=== PATIENT | male | born 1940 | race Caucasian/White ===

== ENCOUNTER 2017-01-05 16:44 | Inpatient (IN) | payer MEDICARE ==
[~2017-01-05] VITALS: Ht 170.2 cm; Wt 87.6 kg
[2017-01-05] MEDS ORDERED: ACETAMINOPHEN 325 MG TABLET PO PRN (17:00)
[2017-01-05] MEDS ORDERED: MORPHINE SULFATE 4 MG/ML, 1ML IVPush PRN (17:00)
[2017-01-05] MEDS ORDERED: POLYETHYLENE GLYCOL 17 GM PACKET PO PRN (17:00)
[2017-01-05] MEDS ORDERED: ONDANSETRON 2MG/ML, 2ML IVP PRN (17:00)
[2017-01-05] MEDS ORDERED: GUAIFENESIN/DM 200-20MG, 10ML UDC PO PRN (17:00)
[2017-01-05] MEDS ORDERED: DOCUSATE 100 MG CAPSULE PO PRN (17:00)
[2017-01-05] MEDS ORDERED: PLEASE ENTER HEIGHT AND WEIGHT MC SCH (17:30)
[2017-01-05] MEDS ORDERED: HEPARIN 5,000 UNITS/ML, 1ML IV ONE (17:30)
[2017-01-05] MEDS ORDERED: PLEASE ENTER ALLERGIES MC SCH ×2 (17:30)
[2017-01-05 17:31] VITALS: BP 118/72
[2017-01-05] MEDS ORDERED: ASPI-650 PO (17:36)
[2017-01-05] MEDS ORDERED: ALLO300T PO (17:36)
[2017-01-05] MEDS ORDERED: LISI40TA PO (17:39)
[2017-01-05] MEDS ORDERED: ROSU20TA PO (17:39)
[2017-01-05] MEDS ORDERED: ATEN50TA41 PO (17:39)
[2017-01-05] MEDS ORDERED: HYDR25TA6 PO (17:39)
[2017-01-05] MEDS: HEPARIN 25,000 UNITS/500ML PMX 500 ML IV PRN (20:09)
[2017-01-05] MEDS: SODIUM CHLORIDE FLUSH 10ML SYR IVF SCH (20:13)
[2017-01-05 21:10] VITALS: BP 121/70
[2017-01-06 02:39] LABS: HEMOGLOBIN 14.5 g/dL (13.7-18.0)
[2017-01-06 02:41] VITALS: BP 111/71
[2017-01-06 02:51] LABS: BLOOD UREA NITROGEN 13 mg/dL (7-18)
[2017-01-06 02:54] LABS: ASPARTATE AMINO TRANSFERASE 21 U/L (15-37)
[2017-01-06] MEDS: HEPARIN 5,000 UNITS/ML, 1ML IV PRN ×2 (04:50→12:00)
[2017-01-06 07:38] VITALS: BP 116/71
[2017-01-06] MEDS: SODIUM CHLORIDE FLUSH 10ML SYR IVF SCH ×2 (08:15→21:00)
[2017-01-06] MEDS: SENNA/DOCUSATE TABLET PO SCH (08:15)
[2017-01-06] MEDS ORDERED: ASPIRIN 325 MG TABLET EC PO SCH (09:00)
[2017-01-06] MEDS ORDERED: ATENOLOL 50 MG TABLET PO SCH (09:00)
[2017-01-06] MEDS ORDERED: HYDROCHLOROTHIAZIDE 25 MG TABLET PO SCH (09:00)
[2017-01-06] MEDS ORDERED: LISINOPRIL 20 MG TABLET PO SCH (09:00)
[2017-01-06 09:45] VITALS: BP 129/73
[2017-01-06] MEDS: ALLOPURINOL 300 MG TABLET PO SCH (09:46)
[2017-01-06] MEDS ORDERED: CHLORHEXIDINE MOUTHWASH 15 ML UDC MM PRN (11:00)
[2017-01-06 11:35] LABS: ASPARTATE AMINO TRANSFERASE 20 U/L (15-37); BLOOD UREA NITROGEN 12 mg/dL (7-18)
[2017-01-06 11:43] LABS: HEMOGLOBIN 14.8 g/dL (13.7-18.0)
[2017-01-06 14:33] VITALS: BP 90/52
[2017-01-06 21:15] VITALS: BP 116/67
[2017-01-06] MEDS: HEPARIN 25,000 UNITS/500ML PMX 500 ML IV PRN (21:40)
[2017-01-06] MEDS: ATORVASTATIN 40 MG TABLET PO SCH (21:43)
[2017-01-06] MEDS: MUPIROCIN OINT 2%, 22GM TP SCH (21:45)
[2017-01-07 01:11] VITALS: BP 104/62
[2017-01-07] MEDS: HEPARIN 5,000 UNITS/ML, 1ML IV PRN (01:20)
[2017-01-07] MEDS ORDERED: ALBUMIN HUMAN 5% 500 ML IV ONE ×2 (02:00→09:00)
[2017-01-07 06:52] VITALS: BP_SYST 102; BP_SYST 104; BP_DIAS 62; BP_DIAS 65
[2017-01-07] MEDS ORDERED: DEXMEDETOMIDINE 200 MCG in SODIUM CHLORIDE 0.9% 48 ML IV SCH (07:30)
[2017-01-07] MEDS ORDERED: REGULAR INSULIN 62.5 UNITS in SODIUM CHLORIDE 0.9% 249.375 ML IV PRN ×2 (07:30→15:37)
[2017-01-07] MEDS ORDERED: EPINEPHRINE 2 MG in SODIUM CHLORIDE 0.9% 248 ML IV SCH (07:30)
[2017-01-07] MEDS ORDERED: VANCOMYCIN 1,300 MG in SODIUM CHLORIDE 0.9% 250 ML IVPB PRN (07:30)
[2017-01-07] MEDS ORDERED: POTASSIUM CHLORIDE 80 MEQ, SODIUM BICARBONATE 8.4% 10 MEQ, MAGNESIUM SULFATE 0.5 GM, LI... IV PRN ×2 (07:30)
[2017-01-07] MEDS ORDERED: VANCOMYCIN 1,200 MG in SODIUM CHLORIDE 0.9% 250 ML IV PRN (07:30)
[2017-01-07] MEDS ORDERED: MANNITOL PMX 20% 500 ML IVPB PRN ×2 (07:30)
[2017-01-07] MEDS ORDERED: PHENYLEPHRINE 10 MG in SODIUM CHLORIDE 0.9% 249 ML IV PRN ×2 (07:30→15:37)
[2017-01-07] MEDS ORDERED: CEFUROXIME 1.5 GM in SODIUM CHLORIDE 0.9% 50 ML IVPB PRN (07:30)
[2017-01-07] MEDS: MUPIROCIN OINT 2%, 22GM TP SCH ×2 (08:31→21:08)
[2017-01-07] MEDS: SODIUM CHLORIDE FLUSH 10ML SYR IVF SCH ×3 (09:00→21:07)
[2017-01-07] MEDS ORDERED: MIDAZOLAM 10MG/2 ML ONE (09:06)
[2017-01-07] MEDS ORDERED: FENTANYL PF 1000 MCG/20ML ONE (09:06)
[2017-01-07] MEDS ORDERED: ROCURONIUM 10 MG/ML ONE (11:25)
[2017-01-07] MEDS ORDERED: PROPOFOL 10 MG/ML, 20ML ONE (11:25)
[2017-01-07] MEDS ORDERED: FENTANYL PF 250 MCG/5ML ONE (12:45)
[2017-01-07] MEDS ORDERED: CLEVIDIPINE 50 ML IV PRN (15:37)
[2017-01-07] MEDS ORDERED: NITROGLYCERIN/D5W PMX 250 ML IV PRN (15:37)
[2017-01-07] MEDS ORDERED: DOBUTAMINE 250 MG in SODIUM CHLORIDE 0.9% 230 ML IV PRN (15:37)
[2017-01-07] MEDS ORDERED: SODIUM CHLORIDE 0.9% 1,000 ML IV PRN (15:37)
[2017-01-07] MEDS ORDERED: SODIUM CHLORIDE 0.9% 1,000 ML IV ONE (15:37)
[2017-01-07] MEDS ORDERED: DEXMEDETOMIDINE 200 MCG in SODIUM CHLORIDE 0.9% 48 ML IV PRN (16:00)
[2017-01-07] MEDS ORDERED: BISACODYL 10 MG SUPP PR PRN (16:00)
[2017-01-07] MEDS: KSCALE TO 4.5 IV SCH ×2 (16:00→22:00)
[2017-01-07] MEDS ORDERED: PROCHLORPERAZINE 5 MG/ML, 2ML IVPush PRN (16:00)
[2017-01-07] MEDS ORDERED: morphine SULFATE 10 MG/ML, 1ML IVPush PRN (16:00)
[2017-01-07] MEDS ORDERED: ONDANSETRON 2MG/ML, 2ML IVPush PRN (16:00)
[2017-01-07] MEDS ORDERED: DEXTROSE 50%, 50ML SYRINGE IVPush PRN (16:00)
[2017-01-07] MEDS ORDERED: BISACODYL 5 MG EC TABLET PO PRN (16:00)
[2017-01-07] MEDS ORDERED: ACETAMINOPHEN 650 MG SUPP PR PRN (16:00)
[2017-01-07] MEDS ORDERED: MIDAZOLAM 1 MG/ML, 5ML IVPush PRN (16:00)
[2017-01-07] MEDS ORDERED: LACTATED RINGERS 500 ML IVBOLUS PRN (16:00)
[2017-01-07] MEDS ORDERED: GLUCAGON 1 MG IM PRN (16:00)
[2017-01-07] MEDS ORDERED: DEXTROSE 4 GM TAB.CHEW PO PRN (16:00)
[2017-01-07] MEDS ORDERED: MEPERIDINE/PF 50 MG/ML IVPush PRN (16:00)
[2017-01-07] MEDS ORDERED: HYDROcodone/APAP 10/325 MG TABLET PO PRN (16:00)
[2017-01-07] MEDS ORDERED: ALBUMIN HUMAN 25% 50 ML ONE (16:01)
[2017-01-07] MEDS ORDERED: AMINOCAPROIC ACID 250 MG/ML, 20ML ONE (16:01)
[2017-01-07] MEDS ORDERED: HEPARIN 1,000 UNITS/ML, 30ML ONE (16:01)
[2017-01-07] MEDS ORDERED: PROTAMINE SULFATE 10 MG/ML, 25ML ONE (16:01)
[2017-01-07] MEDS ORDERED: SODIUM BICARBONATE 1 MEQ/ML, 50ML VIAL ONE (16:01)
[2017-01-07] MEDS ORDERED: CALCIUM CHLORIDE 10%, 10ML SYR ONE (16:01)
[2017-01-07] MEDS ORDERED: MILRINONE 1 MG/ML, 10ML IV ONE (16:02)
[2017-01-07] MEDS ORDERED: PAPAVERINE 30 MG/ML, 2ML ONE (16:02)
[2017-01-07] MEDS ORDERED: LIDOCAINE 2% 100MG/5ML SYRINGE ONE (16:02)
[2017-01-07] MEDS ORDERED: HEPARIN 1,000 UNITS/ML, 10ML ONE (16:02)
[2017-01-07] MEDS: MAGNESIUM SULFATE 1 GM in SODIUM CHLORIDE 0.9% 50 ML IVPB SCH (16:30)
[2017-01-07 16:34] LABS: ABG COLLECTION SITE ARTERIAL LINE
[2017-01-07 16:43] LABS: HEMOGLOBIN 11.8 g/dL (13.7-18.0)
[2017-01-07] MEDS ORDERED: POTASSIUM CHLORIDE PMX 100 ML IV ONE (17:00)
[2017-01-07] MEDS: ALLOPURINOL 300 MG TABLET PO SCH (17:00)
[2017-01-07] MEDS: SENNA/DOCUSATE TABLET PO SCH (17:00)
[2017-01-07] MEDS: SODIUM BICARB 8.4%, 50ML SYRINGE IV PRN ×2 (19:18→22:03)
[2017-01-07] MEDS: CEFUROXIME 1.5 GM in SODIUM CHLORIDE 0.9% 50 ML IVPB SCH (20:15)
[2017-01-07] MEDS: DOCUSATE 100 MG CAPSULE PO SCH (21:00)
[2017-01-07] MEDS: VANCOMYCIN 1,300 MG in SODIUM CHLORIDE 0.9% 250 ML IVPB SCH (21:00)
[2017-01-07] MEDS: ATORVASTATIN 40 MG TABLET PO SCH (21:00)
[2017-01-07] MEDS: MUPIROCIN OINT 2%, 22GM NAS SCH (21:00)
[2017-01-07 22:16] LABS: HEMOGLOBIN 11.4 g/dL (13.7-18.0)
[2017-01-07] MEDS ORDERED: POTASSIUM CHLORIDE 40 MEQ in SODIUM CHLORIDE 0.9% 100 ML IV ONE (22:30)
[2017-01-08] MEDS: EPINEPHRINE 2 MG in SODIUM CHLORIDE 0.9% 248 ML IV PRN ×4 (01:06→17:01)
[2017-01-08] MEDS: HYDROcodone/APAP 5/325 TABLET PO PRN ×3 (02:03→21:12)
[2017-01-08] MEDS: OXYcodone IR 5MG TABLET PO PRN ×5 (03:27→17:36)
[2017-01-08] MEDS: KSCALE TO 4.5 IV SCH ×2 (04:00→10:00)
[2017-01-08 04:33] LABS: ABG COLLECTION SITE ARTERIAL LINE
[2017-01-08 04:37] LABS: HEMOGLOBIN 11.5 g/dL (13.7-18.0)
[2017-01-08 04:49] LABS: BLOOD UREA NITROGEN 11 mg/dL (7-18)
[2017-01-08 05:00] VITALS: BP 117/48
[2017-01-08] MEDS ORDERED: POTASSIUM CHLORIDE PMX 100 ML IV ONE (05:30)
[2017-01-08] MEDS: CEFUROXIME 1.5 GM in SODIUM CHLORIDE 0.9% 50 ML IVPB SCH (07:56)
[2017-01-08] MEDS: ALLOPURINOL 300 MG TABLET PO SCH (07:56)
[2017-01-08] MEDS: SENNA/DOCUSATE TABLET PO SCH (07:56)
[2017-01-08] MEDS: MUPIROCIN OINT 2%, 22GM TP SCH ×2 (07:57→21:12)
[2017-01-08] MEDS: PANTOPRAZOLE 40 MG IV IVPush SCH (07:57)
[2017-01-08] MEDS: SODIUM CHLORIDE FLUSH 10ML SYR IVF SCH ×4 (07:58→21:00)
[2017-01-08] MEDS: DOCUSATE 100 MG CAPSULE PO SCH ×2 (07:58→21:11)
[2017-01-08] MEDS: MUPIROCIN OINT 2%, 22GM NAS SCH ×2 (07:59→21:00)
[2017-01-08] MEDS: INSULIN ASPART 100 UNITS/ML, PEN SQ-INSULIN PRN ×5 (08:00→17:01)
[2017-01-08] MEDS ORDERED: ASPIRIN 81 MG TABLET EC PO SCH (09:00)
[2017-01-08] MEDS: VANCOMYCIN 1,300 MG in SODIUM CHLORIDE 0.9% 250 ML IVPB SCH (10:00)
[2017-01-08] MEDS ORDERED: CALCIUM CHLORIDE 13.6 MEQ in SODIUM CHLORIDE 0.9% 100 ML IV ONE (10:00)
[2017-01-08] MEDS ORDERED: KETOROLAC 30 MG/1 ML IVPush SCH (10:00)
[2017-01-08 10:24] LABS: HEMOGLOBIN 10.8 g/dL (13.7-18.0)
[2017-01-08] MEDS ORDERED: SODIUM CHLORIDE 0.9%, 500ML IVBOLUS ONE (11:00)
[2017-01-08] MEDS: MAGNESIUM SULFATE 1 GM in SODIUM CHLORIDE 0.9% 50 ML IVPB SCH (16:30)
[2017-01-08] MEDS: CHLORHEXIDINE MOUTHWASH 15 ML UDC MM SCH (17:01)
[2017-01-08] MEDS ORDERED: FUROSEMIDE 20 MG/2 ML IV ONE (17:30)
[2017-01-08] MEDS ORDERED: WARFARIN 5 MG TABLET PO-COUM ONE (18:00)
[2017-01-08] MEDS: ATORVASTATIN 40 MG TABLET PO SCH (21:11)
[2017-01-08] MEDS: INSULIN ASPART 100 UNITS/ML, PEN SQ-INSULIN SCH (21:19)
[2017-01-09] MEDS: INSULIN ASPART 100 UNITS/ML, PEN SQ-INSULIN SCH ×5 (00:29→22:12)
[2017-01-09 04:00] VITALS: BP 107/54
[2017-01-09] MEDS: OXYcodone IR 5MG TABLET PO PRN ×3 (05:09→14:21)
[2017-01-09 06:01] LABS: BLOOD UREA NITROGEN 15 mg/dL (7-18)
[2017-01-09 06:43] LABS: HEMOGLOBIN 10.1 g/dL (13.7-18.0)
[2017-01-09 06:44] LABS: DIFF TOTAL CELLS COUNTED 100 CELL DIFF
[2017-01-09 06:45] LABS: VERIFY COUNTS? YES
[2017-01-09 06:46] LABS: POLYCHROMASIA 1+
[2017-01-09] MEDS: CHLORHEXIDINE MOUTHWASH 15 ML UDC MM SCH ×2 (07:12→17:06)
[2017-01-09] MEDS: ALLOPURINOL 300 MG TABLET PO SCH (08:12)
[2017-01-09] MEDS: SENNA/DOCUSATE TABLET PO SCH (08:12)
[2017-01-09] MEDS: FUROSEMIDE 20 MG/2 ML IV SCH ×2 (08:12→17:06)
[2017-01-09] MEDS: MUPIROCIN OINT 2%, 22GM TP SCH ×2 (08:13→21:19)
[2017-01-09] MEDS: DOCUSATE 100 MG CAPSULE PO SCH ×2 (08:13→21:19)
[2017-01-09] MEDS: PANTOPRAZOLE 40 MG IV IVPush SCH (08:13)
[2017-01-09] MEDS: SODIUM CHLORIDE FLUSH 10ML SYR IVF SCH ×4 (08:13→21:00)
[2017-01-09] MEDS: MUPIROCIN OINT 2%, 22GM NAS SCH ×2 (08:14→21:00)
[2017-01-09] MEDS: POTASSIUM CHLORIDE 10 MEQ TABLET.ER PO SCH ×2 (09:07→17:06)
[2017-01-09] MEDS ORDERED: INSULIN REGULAR 100 UNITS/ML, 3ML VIAL SQ-INSULIN SCH (11:00)
[2017-01-09 12:35] LABS: HIT LOT CART23704/KIT23705
[2017-01-09 13:21] LABS: HIT OBC PASS; HIT RESULT POSITIVE (NEGATIVE)
[2017-01-09] MEDS: SODIUM BICARBONATE 4.2%, 5ML NPPB SCH ×2 (14:00→21:37)
[2017-01-09] MEDS ORDERED: SODIUM BICARBONATE 4.2%, 5ML ONE (14:12)
[2017-01-09] MEDS ORDERED: SODIUM BICARBONATE 4.2%, 5ML NPPB SCH (17:00)
[2017-01-09] MEDS: MAGNESIUM SULFATE 1 GM in SODIUM CHLORIDE 0.9% 50 ML IVPB SCH (17:39)
[2017-01-09] MEDS: HYDROcodone/APAP 5/325 TABLET PO PRN (21:19)
[2017-01-09] MEDS: ATORVASTATIN 40 MG TABLET PO SCH (21:19)
[2017-01-10] MEDS: SODIUM BICARBONATE 4.2%, 5ML NPPB SCH (03:35)
[2017-01-10 04:04] LABS: HEMOGLOBIN 9.8 g/dL (13.7-18.0)
[2017-01-10 04:13] LABS: BLOOD UREA NITROGEN 24 mg/dL (7-18)
[2017-01-10 04:54] VITALS: BP 110/60
[2017-01-10] MEDS: CHLORHEXIDINE MOUTHWASH 15 ML UDC MM SCH (06:33)
[2017-01-10] MEDS: INSULIN ASPART 100 UNITS/ML, PEN SQ-INSULIN SCH (06:35)
[2017-01-10] MEDS ORDERED: CEFAZOLIN PMX 1GM/50ML 50 ML IV ONE ×2 (07:00→17:30)
[2017-01-10] MEDS: FUROSEMIDE 20 MG/2 ML IV SCH (08:00)
[2017-01-10] MEDS: POTASSIUM CHLORIDE 10 MEQ TABLET.ER PO SCH (08:00)
[2017-01-10] MEDS ORDERED: MAGNESIUM HYDROXIDE 8%, 30ML UDC PO PRN (08:30)
[2017-01-10] MEDS: SODIUM CHLORIDE FLUSH 10ML SYR IVF SCH ×2 (09:00→19:58)
[2017-01-10] MEDS: PANTOPRAZOLE 40 MG IV IVPush SCH (09:00)
[2017-01-10] MEDS: MUPIROCIN OINT 2%, 22GM TP SCH (09:00)
[2017-01-10] MEDS ORDERED: LIDOCAINE 2%, 20ML ONE (09:32)
[2017-01-10] MEDS ORDERED: MIDAZOLAM 1 MG/ML, 5ML ONE (09:32)
[2017-01-10] MEDS ORDERED: CEFAZOLIN PMX 1GM/50ML 50 ML ONE (09:32)
[2017-01-10] MEDS ORDERED: FENTANYL PF 100 MCG/2ML ONE ×2 (09:32→10:52)
[2017-01-10] MEDS ORDERED: CEFAZOLIN 1,000 MG ONE (09:33)
[2017-01-10] MEDS ORDERED: LACTULOSE 20 GM/30 ML UDC PO PRN (11:30)
[2017-01-10] MEDS ORDERED: LACTULOSE 20 GM/30 ML UDC NG PRN (11:30)
[2017-01-10] MEDS: MUPIROCIN OINT 2%, 22GM NAS SCH ×2 (12:44→19:58)
[2017-01-10] MEDS: ALLOPURINOL 300 MG TABLET PO SCH (12:45)
[2017-01-10] MEDS: SENNA/DOCUSATE TABLET PO SCH (12:45)
[2017-01-10] MEDS: DOCUSATE 100 MG CAPSULE PO SCH ×2 (12:46→19:57)
[2017-01-10] MEDS: FUROSEMIDE 40 MG/4 ML IV SCH (16:41)
[2017-01-10] MEDS: POTASSIUM CHLORIDE 20 MEQ TAB.ER.PRT PO SCH ×2 (16:41→19:57)
[2017-01-10 16:59] VITALS: BP 120/69
[2017-01-10 19:40] VITALS: BP 117/64
[2017-01-10] MEDS: ATORVASTATIN 40 MG TABLET PO SCH (19:57)
[2017-01-10] MEDS: HYDROcodone/APAP 5/325 TABLET PO PRN (20:02)
[2017-01-11] MEDS: HYDROcodone/APAP 5/325 TABLET PO PRN ×3 (00:03→09:52)
[2017-01-11 02:29] VITALS: BP 109/57
[2017-01-11 05:48] LABS: BLOOD UREA NITROGEN 22 mg/dL (7-18)
[2017-01-11 05:52] LABS: HEMOGLOBIN 10.1 g/dL (13.7-18.0)
[2017-01-11 07:17] VITALS: BP 120/56
[2017-01-11] MEDS: SENNA/DOCUSATE TABLET PO SCH (08:19)
[2017-01-11] MEDS: PANTOPROZOLE 40MG TABLET PO SCH (08:19)
[2017-01-11] MEDS: ALLOPURINOL 300 MG TABLET PO SCH (08:19)
[2017-01-11] MEDS: FUROSEMIDE 40 MG/4 ML IV SCH ×2 (08:19→17:39)
[2017-01-11] MEDS: DOCUSATE 100 MG CAPSULE PO SCH ×2 (08:20→20:07)
[2017-01-11] MEDS: SODIUM CHLORIDE FLUSH 10ML SYR IVF SCH ×2 (08:20→20:08)
[2017-01-11] MEDS: POTASSIUM CHLORIDE 20 MEQ TAB.ER.PRT PO SCH ×2 (08:20→17:39)
[2017-01-11] MEDS: MUPIROCIN OINT 2%, 22GM NAS SCH ×2 (08:20→20:08)
[2017-01-11] MEDS ORDERED: AMIODARONE 150 MG in DEXTROSE 5% 100 ML IV ONE (08:30)
[2017-01-11] MEDS ORDERED: FILTER 0.22 MICRON FOR AMIODARONE IV PRN (09:00)
[2017-01-11] MEDS: AMIODARONE 900 MG in DEXTROSE 5% 482 ML IV PRN (09:40)
[2017-01-11 13:46] VITALS: BP 130/63
[2017-01-11 19:07] VITALS: BP 147/66
[2017-01-11] MEDS: ATORVASTATIN 40 MG TABLET PO SCH (20:07)
[2017-01-12 00:14] VITALS: BP 131/67
[2017-01-12 04:42] LABS: HEMOGLOBIN 10.4 g/dL (13.7-18.0)
[2017-01-12 04:46] LABS: BLOOD UREA NITROGEN 19 mg/dL (7-18)
[2017-01-12] MEDS: AMIODARONE 900 MG in DEXTROSE 5% 482 ML IV PRN (05:51)
[2017-01-12 06:44] VITALS: BP 150/70
[2017-01-12] MEDS: FUROSEMIDE 40 MG/4 ML IV SCH ×2 (07:30→08:26)
[2017-01-12] MEDS: PANTOPROZOLE 40MG TABLET PO SCH (08:25)
[2017-01-12] MEDS: SODIUM CHLORIDE FLUSH 10ML SYR IVF SCH ×2 (08:26→20:08)
[2017-01-12] MEDS: SENNA/DOCUSATE TABLET PO SCH (08:26)
[2017-01-12] MEDS: MUPIROCIN OINT 2%, 22GM NAS SCH ×2 (08:26→09:00)
[2017-01-12] MEDS: POTASSIUM CHLORIDE 20 MEQ TAB.ER.PRT PO SCH ×2 (08:26→18:06)
[2017-01-12] MEDS: ALLOPURINOL 300 MG TABLET PO SCH ×2 (08:26→10:30)
[2017-01-12] MEDS: DOCUSATE 100 MG CAPSULE PO SCH ×2 (08:26→20:08)
[2017-01-12] MEDS: ATENOLOL 50 MG TABLET PO SCH (11:24)
[2017-01-12] MEDS: LISINOPRIL 20 MG TABLET PO SCH (11:24)
[2017-01-12] MEDS: FUROSEMIDE 40 MG TABLET PO SCH ×2 (11:25→18:05)
[2017-01-12] MEDS: AMIODARONE 200 MG TABLET PO SCH (11:25)
[2017-01-12] MEDS: ACETAMINOPHEN 325 MG TABLET PO PRN (12:06)
[2017-01-12 14:52] VITALS: BP 99/62
[2017-01-12] MEDS ORDERED: WARFARIN 5 MG TABLET PO-COUM ONE (18:00)
[2017-01-12 18:50] VITALS: BP 106/52
[2017-01-12] MEDS: ATORVASTATIN 40 MG TABLET PO SCH (20:08)
[2017-01-13 04:10] VITALS: BP 127/68
[2017-01-13 06:44] LABS: BLOOD UREA NITROGEN 17 mg/dL (7-18)
[2017-01-13 07:04] VITALS: BP 119/66
[2017-01-13] MEDS: AMIODARONE 200 MG TABLET PO SCH (08:34)
[2017-01-13] MEDS: ATENOLOL 50 MG TABLET PO SCH (08:34)
[2017-01-13] MEDS: POTASSIUM CHLORIDE 20 MEQ TAB.ER.PRT PO SCH ×2 (08:34→18:54)
[2017-01-13] MEDS: PANTOPROZOLE 40MG TABLET PO SCH (08:35)
[2017-01-13] MEDS: FUROSEMIDE 40 MG TABLET PO SCH ×2 (08:35→18:54)
[2017-01-13] MEDS: ALLOPURINOL 300 MG TABLET PO SCH ×2 (08:35)
[2017-01-13] MEDS: SODIUM CHLORIDE FLUSH 10ML SYR IVF SCH ×2 (08:36→21:18)
[2017-01-13] MEDS: DOCUSATE 100 MG CAPSULE PO SCH ×2 (08:36→21:29)
[2017-01-13] MEDS: SENNA/DOCUSATE TABLET PO SCH ×2 (08:36→21:19)
[2017-01-13 12:35] VITALS: BP 99/61
[2017-01-13] MEDS ORDERED: WARFARIN 5 MG TABLET PO-COUM SCH (18:00)
[2017-01-13 19:51] VITALS: BP 107/65
[2017-01-13] MEDS: LISINOPRIL 20 MG TABLET PO SCH (21:18)
[2017-01-13] MEDS: ATORVASTATIN 40 MG TABLET PO SCH (21:19)
[2017-01-14 03:31] VITALS: BP 112/67
[2017-01-14 05:53] LABS: BLOOD UREA NITROGEN 17 mg/dL (7-18)
[2017-01-14 06:03] LABS: HEMOGLOBIN 10.5 g/dL (13.7-18.0)
[2017-01-14] MEDS ORDERED: POTA20TA14 PO (07:25)
[2017-01-14] MEDS ORDERED: DOCU-30 PO (07:25)
[2017-01-14] MEDS ORDERED: AMIO200T42 PO (07:25)
[2017-01-14] MEDS ORDERED: ATOR40TA78 PO (07:25)
[2017-01-14] MEDS ORDERED: FURO40TA6 PO (07:25)
[2017-01-14] MEDS ORDERED: PANT40TA5 PO (07:25)
[2017-01-14] MEDS ORDERED: ALPR0.254 PO (07:25)
[2017-01-14] MEDS ORDERED: WARF5TAB7 PO (07:25)
[2017-01-14] MEDS: FUROSEMIDE 40 MG TABLET PO SCH ×2 (07:30→09:44)
[2017-01-14] MEDS ORDERED: POTASSIUM CHLORIDE 20 MEQ TAB.ER.PRT PO ONE (07:30)
[2017-01-14 07:56] VITALS: BP 137/71
[2017-01-14] MEDS ORDERED: HYDR25TA6 PO (08:32)
[2017-01-14] MEDS: ATENOLOL 50 MG TABLET PO SCH (09:44)
[2017-01-14] MEDS: DOCUSATE 100 MG CAPSULE PO SCH (09:44)
[2017-01-14] MEDS: AMIODARONE 200 MG TABLET PO SCH (09:44)
[2017-01-14] MEDS: PANTOPROZOLE 40MG TABLET PO SCH (09:45)
[2017-01-14] MEDS: ALLOPURINOL 300 MG TABLET PO SCH (09:46)
[2017-01-14] MEDS: SODIUM CHLORIDE FLUSH 10ML SYR IVF SCH ×2 (09:46→20:08)
[2017-01-14] MEDS: LISINOPRIL 20 MG TABLET PO SCH (09:46)
[2017-01-14] MEDS: POTASSIUM CHLORIDE 20 MEQ TAB.ER.PRT PO SCH ×2 (10:15→18:17)
[2017-01-14 14:00] VITALS: BP 123/62
[2017-01-14] MEDS ORDERED: WARFARIN 5 MG TABLET PO-COUM ONE (18:00)
[2017-01-14 19:36] VITALS: BP_SYST 86; BP_SYST 88; BP_DIAS 54; BP_DIAS 55
[2017-01-14 20:00] VITALS: BP 105/77
[2017-01-14] MEDS: ATORVASTATIN 40 MG TABLET PO SCH (20:08)
[2017-01-15] MEDS: ACETAMINOPHEN 325 MG TABLET PO PRN ×2 (00:34→12:17)
[2017-01-15 00:39] VITALS: BP 125/73
[2017-01-15 06:16] LABS: HEMOGLOBIN 10.8 g/dL (13.7-18.0)
[2017-01-15 06:27] LABS: BLOOD UREA NITROGEN 13 mg/dL (7-18)
[2017-01-15 07:31] VITALS: BP 112/62
[2017-01-15] MEDS: LISINOPRIL 20 MG TABLET PO SCH (08:20)
[2017-01-15] MEDS: PANTOPROZOLE 40MG TABLET PO SCH (08:20)
[2017-01-15] MEDS: SENNA/DOCUSATE TABLET PO SCH (08:20)
[2017-01-15] MEDS: DOCUSATE 100 MG CAPSULE PO SCH (08:20)
[2017-01-15] MEDS: ALLOPURINOL 300 MG TABLET PO SCH (08:20)
[2017-01-15] MEDS: ATENOLOL 50 MG TABLET PO SCH (08:20)
[2017-01-15] MEDS: FUROSEMIDE 40 MG TABLET PO SCH (08:20)
[2017-01-15] MEDS: POTASSIUM CHLORIDE 20 MEQ TAB.ER.PRT PO SCH (08:20)
[2017-01-15] MEDS: AMIODARONE 200 MG TABLET PO SCH (08:21)
[2017-01-15] MEDS: SODIUM CHLORIDE FLUSH 10ML SYR IVF SCH (08:21)
[2017-01-15 12:58] VITALS: BP 103/62
[2017-01-15] MEDS ORDERED: WARFARIN 2.5 MG TABLET PO-COUM ONE (18:00)
== END 2017-01-15 15:03 | disposition home health service (06) | DRG 219 ==
LOC: 5SO 16:44 → CSU 01-07 11:52 → 5SO 01-10 17:08
PROVIDERS: ADMIT Family Medicine; ATTEND Family Medicine
PROC: 02H63JZ Insertion of Pacemaker Lead into Right Atrium, Percutaneous Approach (ICD-10-PCS; 2017-01-05)
PROC: 02HK3JZ Insertion of Pacemaker Lead into Right Ventricle, Percutaneous Approach (ICD-10-PCS; 2017-01-05)
PROC: 0JH606Z Insertion of Pacemaker, Dual Chamber into Chest Subcutaneous Tissue and Fascia, Open Approach (ICD-10-PCS; 2017-01-05)
PROC: 5A2204Z Restoration of Cardiac Rhythm, Single (ICD-10-PCS; 2017-01-05)
PROC: 0T9B70Z Drainage of Bladder with Drainage Device, Via Natural or Artificial Opening (ICD-10-PCS; 2017-01-06)
PROC: 02RF0JZ Replacement of Aortic Valve with Synthetic Substitute, Open Approach (ICD-10-PCS; 2017-01-07)
PROC: 02100Z9 Bypass Coronary Artery, One Artery from Left Internal Mammary, Open Approach (ICD-10-PCS; 2017-01-07)
PROC: 5A1221Z Performance of Cardiac Output, Continuous (ICD-10-PCS; 2017-01-07)
PROC: B246ZZ4 Ultrasonography of Right and Left Heart, Transesophageal (ICD-10-PCS; 2017-01-07)
PROC: 5A1221Z Performance of Cardiac Output, Continuous (ICD-10-PCS; 2017-01-07)
PROC: 06BP0ZZ Excision of Right Saphenous Vein, Open Approach (ICD-10-PCS; 2017-01-07)
PROC: 021009W Bypass Coronary Artery, One Artery from Aorta with Autologous Venous Tissue, Open Approach (ICD-10-PCS; principal; 2017-01-07 10:00)
DX: I21.4 Non-ST elevation (NSTEMI) myocardial infarction (principal); J96.01 Acute respiratory failure with hypoxia; Z99.11 Dependence on respirator [ventilator] status; I44.2 Atrioventricular block, complete; I35.1 Nonrheumatic aortic (valve) insufficiency; D64.9 Anemia, unspecified; I25.10 Atherosclerotic heart disease of native coronary artery without angina pectoris; I10 Essential (primary) hypertension; D72.829 Elevated white blood cell count, unspecified; D75.82 Heparin induced thrombocytopenia (HIT); E11.65 Type 2 diabetes mellitus with hyperglycemia; I35.2 Nonrheumatic aortic (valve) stenosis with insufficiency; I34.0 Nonrheumatic mitral (valve) insufficiency; I25.82 Chronic total occlusion of coronary artery; I48.91 Unspecified atrial fibrillation; Z79.01 Long term (current) use of anticoagulants; Z79.899 Other long term (current) drug therapy; Z87.891 Personal history of nicotine dependence
CPT/HCPCS: 33208; 36415; 36600; 70450; 71010; 80048; 80053; 81003; 82040; 82330; 82800; 82803; 82810; 82947; 82962; 83036; 83735; 84132; 84295; 85014; 85018; 85025; 85049; 85347; 85520; 85610; 85730; 86022; 86850; 86900; 86923; 87040; 87081; 87086; 88305; 92960; 93005; 93312; 93321; 93325; 93880; 93970; 94002; 94003; 94150; 94640; C1768; C1779; C1785; C1892; J0690; J0697; J1644; J1815; J1885; J1940; J2250; J2260; J2405; J2704; J2720; J3010; J3370; J3475; J3480; J3490; P9045; P9047; C1751; C9113; J0171; J0282; J2370; J2440; J7030; J7040; J7050; J7060